=== PATIENT | female | born 1930 | race African-American/Black ===

== ENCOUNTER 2018-08-28 01:21 | Emergency (ER) | payer MEDICARE, MEDICAID ==
[~2018-08-28] VITALS: Ht 157.5 cm; Wt 77.0 kg
[~2018-08-28 01:21] MED LIST: ASPIRIN PO
[2018-08-28] MEDS ORDERED: ACETAMINOPHEN 500MG TABLET PO STA (01:57)
[2018-08-28 04:09] LABS: HEMATOCRIT. 35.2 % (36.0-48.0); HEMOGLOBIN. 11.1 g/dL (12.0-16.0); MEAN CORPUSCULAR HEMOGLOBIN 23.9 pg (28.0-32.0); MEAN CORPUSCULAR VOLUME 75.8 fL (81.0-99.0); MEAN PLATELET VOLUME 8.8 fl (7.4-10.4); PLATELET 232 x1000/uL (130-400); RED BLOOD CELL COUNT 4.65 mill/uL (4.2-5.4); RED CELL DISTRIBUTION WIDTH 16.6 % (11.6-14.6)
[2018-08-28 04:13] LABS: CHLORIDE 106 mEq/L (98-107)
[2018-08-28 04:14] LABS: INR 1.1; PARTIAL THROMBOPLASTIN TIME 22.9 sec (23.4-31.0); PROTHROMBIN TIME 10.6 sec (9.1-11.1)
[2018-08-28 05:11] LABS: CLARITY URINE CLOUDY (CLEAR); COLOR URINE YELLOW (YELLOW); KETONES URINE NEGATIVE (NEGATIVE); LEUKOCYTE ESTERASE URINE 3+ (NEGATIVE); NITRITE URINE NEGATIVE (NEGATIVE); OCCULT BLOOD URINE TRACE (NEGATIVE); PH URINE 5.5 (4.5-8.0); PROTEIN URINE NEGATIVE (NEGATIVE); UROBILINOGEN URINE 0.2 E.U./dL (0.2-1.0)
[2018-08-28 05:29] LABS: PLATELET ESTIMATE NORMAL
[2018-08-28] MEDS ORDERED: CEPHALEXIN 500MG CAPSULE PO ONE (05:30)
[2018-08-28] MEDS ORDERED: DIPHENHYDRAMINE 25MG CAPSULE PO ONE (05:30)
[2018-08-28 06:40] VITALS: BP 192/70
== END 2018-08-28 06:56 | disposition home or self-care (01) ==
LOC: ER 01:21
DX: N39.0 Urinary tract infection, site not specified (principal); M25.512 Pain in left shoulder; M25.572 Pain in left ankle and joints of left foot; M25.571 Pain in right ankle and joints of right foot; J45.909 Unspecified asthma, uncomplicated; I10 Essential (primary) hypertension; Z90.710 Acquired absence of both cervix and uterus; Z79.82 Long term (current) use of aspirin
CPT/HCPCS: 36415; 70450; 71045; 72125; 72170; 73610; 80053; 81003; 82962; 83690; 85025; 85610; 85730; 87077; 87086; 87186; 99285; Q0163